=== PATIENT | female | born 1990 | race Caucasian/White ===

== ENCOUNTER 2020-04-17 15:13 | Inpatient (IN) | payer BC ==
[~2020-04-17] VITALS: Ht 167.6 cm; Wt 112.3 kg
[2020-04-17 15:22] VITALS: Ht 167.6 cm; Wt 112.3 kg
[2020-04-17 17:06] LABS: BASOPHIL % 0.2 % (0-2); PLATELET COUNT 353 x10^3mcL (130-400); RED CELL DISTRIBUTION WIDTH 13.7 % (11.5-14.5)
[2020-04-17 17:18] LABS: CALCIUM 8.6 mg/dL (8.5-10.1); CARBON DIOXIDE 24.6 mmol/L (21-32); CHLORIDE SERUM 105 mmol/L (98-107); GFR1 > 60 mL/min; GLUCOSE SERUM 106 mg/dL (74-106); POTASSIUM SERUM 3.7 mmol/L (3.5-5.1); SODIUM SERUM 141 mmol/L (136-145)
[2020-04-17 17:22] LABS: ALBUMIN 3.7 g/dL (3.4-5.0); ALKALINE PHOSPHATASE 62 U/L (46-116); ALT/SGPT 22 U/L (14-59); AST/SGOT 18 U/L (15-37); BILIRUBIN TOTAL 0.4 mg/dL (0.20-1.00); LIPASE 126 IU/L (73-393); TOTAL PROTEIN, SERUM 7.8 g/dL (6.4-8.2)
[2020-04-17 19:27] LABS: UA SPECIFIC GRAVITY 1.025 (1.005-1.035); microscopic required? YES; urine erythrocyte 3+ (NEGATIVE)
[2020-04-17 20:53] VITALS: BP 145/88
[2020-04-18 06:30] VITALS: BP 134/70
[2020-04-18 08:19] VITALS: BP 133/73
[2020-04-18 12:08] VITALS: BP 138/82
[2020-04-18 16:27] VITALS: BP 137/80
[2020-04-18] MEDS ORDERED: CIPRO500 MG PO (16:32)
[2020-04-18] MEDS ORDERED: CULTURELLE1 EACH PO (16:32)
[2020-04-18 17:21] VITALS: BP 137/80
== END 2020-04-18 18:38 | disposition home or self-care (01) | DRG 854 ==
LOC: ED 15:13 → DU 18:59
PROVIDERS: Emergency Medicine; Urology; ADMIT Family Medicine; ATTEND Family Medicine
PROC: 0T768DZ Dilation of Right Ureter with Intraluminal Device, Via Natural or Artificial Opening Endoscopic (ICD-10-PCS; 2020-04-18)
PROC: BT1D1ZZ Fluoroscopy of Right Kidney, Ureter and Bladder using Low Osmolar Contrast (ICD-10-PCS; principal; 2020-04-18 12:30)
DX: A41.9 Sepsis, unspecified organism (principal); N13.6 Pyonephrosis; N20.1 Calculus of ureter; Z68.41 Body mass index [BMI] 40.0-44.9, adult; E66.9 Obesity, unspecified; Z88.0 Allergy status to penicillin
CPT/HCPCS: G0378; J0696; J1885; J2250; J2405; J3010; J7030; J7060; Q0092; Q9958; Q9967